=== PATIENT | female | born 1990 | race Two or more races ===

== ENCOUNTER → 2017-10-17 | Outpatient (CLI) | payer OTHER | LOC: M RAD 14:59 | DX: N63.10 Unspecified lump in the right breast, unspecified quadrant (principal) | CPT/HCPCS: 77066 ==

== ENCOUNTER 2018-06-05 12:32 | Emergency (ER) | payer OTHER ==
[~2018-06-05] VITALS: Ht 157.5 cm; Wt 84.5 kg
[2018-06-05] MEDS ORDERED: NS 1,000 ML IV ONE (14:30)
[2018-06-05] MEDS ORDERED: METOCLOPRAMIDE INJ 10MG/2ML VIAL (J2765) IV ONE (14:30)
[2018-06-05] MEDS ORDERED: KETOROLAC 30 MG/ML VIAL (J1885) IV ONE (14:30)
[2018-06-05 14:43] LABS: HEMATOCRIT 43.7 % (36.0-47.0); HEMOGLOBIN 14.4 g/dl (12.0-15.5); MEAN CORPUSCULAR HEMOGLOBIN 30.3 pg (27.0-33.0); PLATELET COUNT, AUTOMATED 219 10^3/uL (150-450); RED BLOOD COUNT 4.75 10^6/uL (4.00-5.40); WHITE BLOOD COUNT 6.8 10^3/uL (4.0-10.0)
[2018-06-05 15:02] LABS: INFLUENZA A AMPLIFICATION NEGATIVE (NEGATIVE); INFLUENZA B AMPLIFICATION NEGATIVE (NEGATIVE)
[2018-06-05 15:07] LABS: ATYPICAL LYMPH 5 % (0-5); LYMPHOCYTES 52 % (16-52); NEUTROPHILS 43 % (35-75); PLATELET ESTIMATE NORMAL (NORMAL)
[2018-06-05 15:13] LABS: ALBUMIN 4.1 GM/DL (3.2-5.2); ALT/SGPT 69 U/L (12-78); BILIRUBIN,TOTAL 0.5 MG/DL (0.2-1.0); BLOOD UREA NITROGEN 12 MG/DL (7-18); CALCIUM LEVEL 8.3 MG/DL (8.5-10.1); CARBON DIOXIDE LEVEL 28 MEQ/L (21-32); CHLORIDE LEVEL 106 MEQ/L (98-107); CREATININE FOR GFR 0.71 MG/DL (0.55-1.30); GLOMERULAR FILTRATION RATE > 60.0 (>60); GLUCOSE, FASTING 74 MG/DL (70-100); POTASSIUM SERUM 3.8 MEQ/L (3.5-5.1); SODIUM LEVEL 139 MEQ/L (136-145); TOTAL PROTEIN 7.5 GM/DL (6.4-8.2)
--- NOTE | 2018-06-05 15:26 | REP ---
Chest x-ray: Two views. History: Pain with inspiration. . Comparison study: No comparison study . Findings: The lungs are well inflated and free of infiltrate. The pleural angles are sharp. The heart size is normal. Pulmonary vasculature is not increased. No significant bony abnormality is seen. Impression: Negative chest x-ray. Electronically Signed by Feliberto Laughlin MD 06/05/2018 03:17 P
[2018-06-05] MEDS ORDERED: REGL10TA6 PO (15:31)
[2018-06-05] MEDS ORDERED: AUGM875T28 PO (15:31)
[2018-06-05] MEDS ORDERED: ZOFR4TAB16 PO (15:31)
[2018-06-05] MEDS ORDERED: NAPR-50 PO (15:31)
[2018-06-05] MEDS ORDERED: PRED20TA PO (15:33)
[2018-06-05] MEDS ORDERED: PROAAER10 INH (15:33)
[2018-06-05] MEDS ORDERED: AUGMENTIN 875 MG TAB PO ONE (15:45)
[2018-06-05 16:21] VITALS: BP 105/57
--- NOTE | 2018-06-06 06:57 | ECGEPIP ---
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
== END 2018-06-05 16:27 | disposition home or self-care (01) ==
LOC: M ED 12:32
DX: J01.90 Acute sinusitis, unspecified (principal); J20.9 Acute bronchitis, unspecified; G43.909 Migraine, unspecified, not intractable, without status migrainosus; R07.9 Chest pain, unspecified
CPT/HCPCS: 71046; 80053; 85025; 87502; 87880; 93005; 96374; 96375; 99284; J1885; J2765

== ENCOUNTER → 2019-04-13 | Outpatient (REF) | payer OTHER ==
[~2019-04-13] MED LIST: AUGM875T28 PO; NAPR-837 PO; PRED20TA PO; PROAAER10 INH; REGL10TA6 PO; ZOFR4TAB16 PO
== END ==
LOC: M SFHCLERA 17:11
PROVIDERS: ATTEND Physician Assistant
DX: N92.6 Irregular menstruation, unspecified (principal)
CPT/HCPCS: 81002; 81025; 84702; 87086; G0463

== ENCOUNTER → 2019-04-20 | Outpatient (REF) | payer OTHER | LOC: M SFHCLERA 11:57 | PROVIDERS: ATTEND Nurse Practitioner Family | DX: R50.9 Fever, unspecified (principal) ==

== ENCOUNTER → 2020-04-20 | Outpatient (REF) | payer OTHER ==
[2020-04-20 13:38] LABS: HEMATOCRIT 42.5 % (36.0-47.0); MEAN CORPUSCULAR HEMOGLOBIN 30.6 pg (27.0-33.0); MEAN CORPUSCULAR HGB CONC 32.9 g/dl (32.0-36.5); MEAN CORPUSCULAR VOLUME 92.8 fl (80.0-96.0); PLATELET COUNT, AUTOMATED 270 10^3/uL (150-450); RED BLOOD COUNT 4.58 10^6/uL (4.00-5.40); WHITE BLOOD COUNT 9.7 10^3/uL (4.0-10.0)
[2020-04-20 14:07] LABS: GLUCOSE CHALLENGE TEST 1 HOUR 83 MG/DL (LESS THAN 140)
[2020-04-20 15:00] LABS: HEPATITIS C VIRUS ABY INDEX < 0.0 INDEX (<0.8); HIV 1&2 SCREEN CENTAUR NEGATIVE (NEGATIVE)
[2020-04-20 15:39] LABS: CHLAMYDIA DNA AMPLIFICATION NEGATIVE (NEGATIVE); GC DNA AMPLIFICATION NEGATIVE (NEGATIVE)
== END ==
LOC: M PLALAB 09:17
PROVIDERS: ATTEND Obstetrics & Gynecology
DX: O99.211 Obesity complicating pregnancy, first trimester (principal)

== ENCOUNTER → 2020-06-16 | Outpatient (CLI) | payer OTHER ==
--- NOTE | 2020-06-16 20:14 | REP ---
INDICATION: ANATOMY. COMPARISON: None. TECHNIQUE: Transabdominal obstetric sonography. FINDINGS: Scanning through the gravid uterus demonstrates a viable single intrauterine gestation in breech lie. motion is observed and heart rate is recorded at 149 beats per minute. A anterior placenta is seen, grade 1, without evidence of placenta previa. Closed cervical length is measured at 4.2 cm transabdominally. No extrauterine abnormality is observed. Amniotic fluid is subjectively normal. head appears somewhat dull a Co cephalic, possibly is rib related to breech position. No other abnormality is observed. nose and lips and four-chamber heart and outflow tract views are less than optimally seen. Similarly, diaphragm and kidneys are less than optimally seen due to position. The following additional anatomic structures are identified felt to be unremarkable: Intracranial anatomy, facial profile, left-sided stomach, abdominal wall cord insertion, urinary bladder, spine, upper and lower extremities, three-vessel cord.. Biometry chart: BPD 4.0 cm, 18 weeks 2 days Head circumference 16.2 cm, 19 weeks 0 days Abdominal circumference 14.3 cm, 19 weeks 4 days Femur length 3.2 cm, 20 weeks 0 days Humeral length 3.0 cm, 20 weeks 0 days HC AC ratio normal 1.13 Cephalic index normal 0.67 Estimated weight 302 g, 0 lb 10 oz, 86 percentile for 18 weeks 6 days IMPRESSION: Viable single intrauterine gestation at 19 weeks 2 days by today's composite sonographic criteria. VITALIY by today's sonography November 08, 2020. No complication identified. Expected gestational age estimate based on known VITALIY November 11, 2020 is 18 weeks 6 days. anatomic survey less than complete. <Electronically signed by Candelario Laughlin > 06/16/202009
== END ==
LOC: M WHC 13:34
PROVIDERS: ATTEND Obstetrics & Gynecology
DX: O99.212 Obesity complicating pregnancy, second trimester (principal); Z3A.19 19 weeks gestation of pregnancy

== ENCOUNTER → 2020-07-22 | Outpatient (CLI) | payer OTHER ==
--- NOTE | 2020-07-22 15:30 | REP ---
INDICATION: F/U ANATOMY. Specifically head, upper lip, four-chamber heart, kidneys, and ventricular outflow tracts COMPARISON: 06/16/2020 TECHNIQUE: Transabdominal FINDINGS: Multiple ultrasonographic images of the gravid uterus shows a single living intrauterine gestation in the cephalic presentation. Doppler interrogation of the the heart shows a heart rate of 140 beats per minute. The placenta is anterior and not low-lying. The subjective amniotic fluid volume is within normal limits. The cervix measures 6.7 cm in length and is closed. The head was seen to be within normal limits. Anatomical structures seen to be unremarkable are as follows: upper lip, kidneys, four-chamber heart, and ventricular outflow tracts BPD: 6.0 cm 24 weeks 3 days HC: 22.5 cm 24 weeks 4 days AC: 20.6 cm 25 weeks 1 day FL: 4.5 cm 24 weeks 5 days The estimated weight is 744 g which is at the 80th percentile for a 24 week 0 day gestational age. IMPRESSION: Single living intrauterine gestation as described above with an estimated gestational age of 24 weeks 6 days via composite criteria and an estimated date of delivery of 11/05/2020 by today's exam. No anomalies were detected. <Electronically signed by Antonino Marie > 07/22/20 [id number]
== END ==
LOC: M WHC 13:06
PROVIDERS: ATTEND Obstetrics & Gynecology
DX: Z34.92 Encounter for supervision of normal pregnancy, unspecified, second trimester (principal)

== ENCOUNTER → 2020-08-08 | Outpatient (REF) | payer OTHER ==
[2020-08-08 12:45] LABS: HEMOGLOBIN 12.3 g/dl (12.0-15.5); MEAN CORPUSCULAR HEMOGLOBIN 30.3 pg (27.0-33.0); MEAN CORPUSCULAR HGB CONC 32.4 g/dl (32.0-36.5); MEAN CORPUSCULAR VOLUME 93.6 fl (80.0-96.0); PLATELET COUNT, AUTOMATED 276 10^3/uL (150-450); RED BLOOD COUNT 4.06 10^6/uL (4.00-5.40); WHITE BLOOD COUNT 12.3 10^3/uL (4.0-10.0)
== END ==
LOC: M PLALAB 09:04
PROVIDERS: ATTEND Obstetrics & Gynecology
DX: Z34.92 Encounter for supervision of normal pregnancy, unspecified, second trimester (principal)

== ENCOUNTER → 2020-10-24 | Outpatient (REF) | payer OTHER | LOC: M SFHCWAGY 16:43 | PROVIDERS: ATTEND Obstetrics & Gynecology | DX: Z34.93 Encounter for supervision of normal pregnancy, unspecified, third trimester (principal) ==

== ENCOUNTER 2020-11-01 08:42 | Inpatient (IN) | payer OTHER ==
[2020-11-01] VITALS (60 sets, daily range): BP systolic 77–128; BP diastolic 43–72
[~2020-11-01] VITALS: Ht 157.5 cm; Wt 99.6 kg
[2020-11-01] MEDS ORDERED: MULTTAB20 PO (09:07)
[2020-11-01] MEDS ORDERED: HOME MED LIST COMPLETE! XX SCH (09:20)
[2020-11-01] MEDS ORDERED: LACTATED RINGER'S 1000 ML IV STA (09:28)
[2020-11-01] MEDS ORDERED: LIDOCAINE 1% MDV 20ML VIAL INFIL PRN (09:30)
[2020-11-01] MEDS ORDERED: CARBOPROST TROMETHAMINE 250 MCG/ML AMP IM PRN (09:30)
[2020-11-01] MEDS ORDERED: TRANEXAMIC ACID INJection 1,000 MG in NS 100 ML IV PRN (09:30)
[2020-11-01] MEDS ORDERED: OXYTOCIN DRIP 30 UNITS in IV 1 EA IV PRN ×4 (09:30)
[2020-11-01] MEDS ORDERED: METHYLERGONOVINE MALEATE 0.2 MG/ML VIAL (J2210) IM PRN (09:30)
[2020-11-01] MEDS ORDERED: OXYTOCIN DRIP 30 UNITS in IV 1 EA IV SCH (09:40)
[2020-11-01 10:15] LABS: HEMATOCRIT 35.5 % (36.0-47.0); HEMOGLOBIN 11.6 g/dl (12.0-15.5); MEAN CORPUSCULAR HEMOGLOBIN 28.1 pg (27.0-33.0); MEAN CORPUSCULAR HGB CONC 32.7 g/dl (32.0-36.5); PLATELET COUNT, AUTOMATED 263 10^3/uL (150-450); RED BLOOD COUNT 4.13 10^6/uL (4.00-5.40); WHITE BLOOD COUNT 12.3 10^3/uL (4.0-10.0)
[2020-11-01] MEDS: LR 1,000 ML IV SCH ×2 (10:17→13:51)
--- NOTE | 2020-11-01 10:43 | HPEPDOC ---
Obstetrical History & Physical General Date of Admission Nov 01, 2020 at 08:42 History of Present Illness 30-year-old at 38+4 weeks gestation. Presents for an induction of labor. Indication for induction: Oligohydramnios. Patient was seen in the office earlier today and found to have oligohydramnios She denies vaginal bleeding, loss of fluid or painful, frequent uterine contractions. She reports regular movement. She denies headache, visual changes, right upper quadrant pain, shortness of breath or chest pain. course: Oligohydramnios PMH: PCOS, psoriasis, depression SH: Left knee/Ortho Meds: vitamin All: NKDA DIRECT MAIL CLERK: No STI or dysplasia OB: G1, 2017: , 9 pounds 3 ounces. G2, 2020: First trimester SAB Sochx: No tobacco, alcohol or drug use FamHx: Hypertension, diabetes, heart disease, skin and breast cancer labs: Blood type O+, antibody screen negative, HepBsAg neg, HIV neg, rubella immune, Hep C antibody negative, RPR nonreactive, CT/GC neg, urine c ulture negative, 1 hour glucose challenge test 96, GBS negative Imaging: Second trimester ultrasounds revealed no anomalies or placental abnormalities. Past Medical History Allergies Coded Allergies: No Known Allergies (Unverified , 06/05/18) Medications Scheduled Amoxicillin/Potassium Clav (Augmentin 875-125 Tablet) 1 Tab Tab, 1 TAB PO BID Naproxen (Naprosyn) 500 Mg Tab, 500 MG PO BID take with food Ondansetron HCl (Zofran) 4 Mg Tab, 1 TAB PO Q6H Prednisone (Prednisone) 20 Mg Tab, 60 MG PO DAILY No122/Iron/Folic Acid ( Multi Tablet) 1 Each Tablet, 1 TAB PO DAILY Scheduled PRN Albuterol Sulfate (Proair Hfa) 108 Mcg/Act Aer, 2 PUFF INH Q4-6HP PRN for CONGESTION Metoclopramide HCl (Reglan) 10 Mg Tab, 10 MG PO Q6H PRN for NAUSEA Physical Examination Physical Examination GENERAL: Alert and oriented times three. ABDOMEN: Gravid and non-tender to touch. FETUS: Is vertex (VTX) by sterile vaginal examination (SVE), fetus is vertex (VTX) by Baltazar. HEART RATE: Regular rate and rhythm. LUNGS: Clear to auscultation (CTA). EXTREMITIES: No edema. No clonus SVE: 3cm, 50%, -3, cephalic, intact, no bloody show. EFM: Cat I [place]: irregular contraction pattern. Vital Signs/I&O Vital Signs Date Time Temp Pulse Resp B/P (MAP) Pulse Ox O2 Delivery O2 Flow Rate FiO2 11/01/20 10:16 105 108/69 (82) 11/01/20 09:06 97.3 17 Laboratory Data 24H LABS Laboratory Tests 2 11/01/20 09:02: Serology Scanned Report Hepatitis B Testing 11/01/20 10:03: Nucleated Red Blood Cells % (auto) 0.0 CBC/BMP Laboratory Tests 11/01/20 10:03 Assessment/Plan Assessment 30-year-old -0-1-1 at 38+4 weeks gestation. Oligohydramnios. Reassuring maternal and status. Plan Admit and orient. Technologist Development and consent. Labs and intravenous (IV) per unit protocol. Counseled on rationale for induction of labor in the setting of oligohydramnios diagnosis. Risks of Pitocin and induction of labor (IOL) reviewed. Anticipate normal spontaneous delivery (). C-S as appropriate. RJ PALACIOS DO Nov 01, 2020 10:42
[2020-11-01] MEDS ORDERED: FENTANYL 2MCG/ML ROPIVACAINE 0.2% IN 0.9% NACL 100ML IVBAG As Ordered ONE (11:58)
[2020-11-01] MEDS ORDERED: REFRIGERATOR IV KEYS XX PRN (13:15)
[2020-11-01] MEDS ORDERED: EPIDURAL/PCA KEYS XX PRN (13:15)
[2020-11-01] MEDS ORDERED: FENTANYL/ROPIVACAINE/NACL BAG 100 ML EPIDURAL SCH (13:15)
[2020-11-01] MEDS ORDERED: LACTATED RINGER'S 1000 ML IV PRN (13:15)
[2020-11-01] MEDS ORDERED: NALOXONE INJ 0.4MG/1ML VIAL (J2310 PER 1MG) IV PRN (13:15)
[2020-11-01] MEDS ORDERED: EPIDURAL COMMENT XX SCH (13:15)
[2020-11-01] MEDS ORDERED: diphenhydrAMINE 50MG/ML VIAL (J1200) IV PRN (13:15)
[2020-11-01] MEDS ORDERED: ONDANSETRON 4MG/2ML VIAL IV PRN (13:15)
[2020-11-01] MEDS: ePHEDrine SULFATE 25 MG/5 ML(5MG/ML) SYRINGE IV PRN ×4 (13:30→21:39)
--- NOTE | 2020-11-01 18:21 | IPNPDOC ---
Obstetrical Progress Note Date of Service Nov 01, 2020 Subjective Patient elected to have epidural. Very comfortable. Objective Vital Signs Date Time Temp Pulse Resp B/P (MAP) Pulse Ox O2 Delivery O2 Flow Rate FiO2 11/01/20 17:40 75 87/48 (61) 11/01/20 13:50 96.8 15 Assessment Heart Rate Tracing: Category I Tocometer Frequency: every 2-5 min. Sterile Vaginal Examination Dilation: 5 cm Effacement (%): 50% Station: -2 Cervical Consistency: Soft Cervical Position: Anterior Postion/Presentation: Cephalic presentation Assessment and Plan Status: Reassuring Anticipate: Vaginal Delivery Additional Comments AROM,clear Reassuring maternal and status Continue RJ Lundberg DO Nov 01, 2020 18:21
[2020-11-01] MEDS ORDERED: MEASLES,MUMPS,RUBELLA VACCINE INJ (MMR-II) (90707) SC SCH (23:15)
[2020-11-01] MEDS ORDERED: ACETAMINOPHEN 500 MG TAB PO PRN (23:15)
[2020-11-01] MEDS ORDERED: ACETAMINOPHEN TAB 650MG DOSE (2X325MG) PO PRN (23:15)
[2020-11-01] MEDS ORDERED: METHYLERGONOVINE MALEATE 0.2 MG TAB PO PRN (23:15)
[2020-11-01] MEDS ORDERED: RHOGAM 300 MCG (1500 IU) INJ (J2790) IM SCH (23:15)
[2020-11-01] MEDS ORDERED: IBUPROFEN 600MG TAB PO PRN (23:15)
[2020-11-01] MEDS ORDERED: DOCUSATE SODIUM 100MG CAPSULE PO PRN (23:15)
[2020-11-01] MEDS ORDERED: DIBUCAINE 1% OINTMENT 30GM TOP PRN (23:15)
--- NOTE | 2020-11-01 23:17 | DNPDOC ---
[facility] Delivery Note Delivery Note DATE OF DELIVERY: 11/01/2020 TIME OF DELIVERY: 230 Spontaneous vaginal delivery. CLIENT CARE REPRESENTATIVE: Dr. Tyrese Castillo DO FACOG ANESTHESIA: Epidural LACERATION: None ESTIMATED BLOOD LOSS: 200 mL. FINDINGS: 9 pound 7 ounce (4130 g) female , Score 8 and 9. DELIVERY SUMMARY: The active phase and second stage of labor progressed in normal fashion. She received Pitocin augmentation throughout her labor course. The head delivered in the PAT position, and restituted LOT. No nuchal cord was noted. The anterior shoulder delivered with gentle downward guidance and the remainder of the body delivered with ease. The baby was placed on the patient's chest. Delayed cord clamping occurred for approximately 1 minute. The cord was then doubly clamped and cut. IV Pitocin was bolused to actively manage the third stage of labor. The placenta delivered intact without any difficulty within 10 minutes of delivery. The uterine fundus was noted to be firm and 2 cm below the umbilicus. The cervix, vagina, vulva and perineum were inspected. No laceration. Excellent hemostasis was noted. Sponge, needle and instrument counts were correct per protocol. DO GORAN Jimenez JONATHAN R. DO Nov 01, 2020 23:17
[2020-11-02 00:07] VITALS: BP 110/56
[2020-11-02 06:00] VITALS: BP 100/54
--- NOTE | 2020-11-02 08:28 | IPNPDOC ---
Progress Note Date of Service: Nov 02, 2020 Day#: 1 Progress Note SUBJECT: Status post . She has been ambulating, voiding spontaneously without issue and tolerating regular diet. Lochia decreasing/minimal. Pain is well-controlled. Denies headache, visual changes, right upper quadrant pain, shortness breath or chest pain. OBJECTIVE: VITAL SIGNS: Within normal limits, afebrile. Alert and oriented times three. Abdomen: Fundus firm at U-2. Soft, NTTP. ASSESSMENT: Status post uncomplicated spontaneous vaginal delivery. Vitals within normal limits, afebrile, hemodynamically stable with no evidence of infection. PLAN: Discharge to home tomorrow Tylenol and Motrin for pain. Routine instructions/precautions reviewed. Routine PP visit in 6 weeks in clinic. VS, I&O, 24H, [place] Vital Signs/I&O Vital Signs Date Time Temp Pulse Resp B/P (MAP) Pulse Ox O2 Delivery O2 Flow Rate FiO2 11/02/20 06:00 97.5 83 16 100/54 (69) 98 Room Air I&O- Last 24 Hours up to 6 AM 11/02/20 06:00 Intake Total 4299 ml Output Total 2200 ml Balance 2099 ml Laboratory Data 24H LABS Laboratory Tests 2 11/01/20 09:02: Serology Scanned Report Hepatitis B Testing 11/01/20 10:03: Nucleated Red Blood Cells % (auto) 0.0, Syphilis Serology NONREACTIVE CBC/BMP Laboratory Tests 11/01/20 10:03 RJ PALACIOS DO Nov 02, 2020 08:27
[2020-11-02] MEDS: PRENATAL VITAMINS CHEWABLE TABLET PO SCH (09:08)
[2020-11-02] MEDS: IBUPROFEN 800 MG TAB PO PRN ×2 (10:03→18:19)
[2020-11-02 18:00] VITALS: BP 113/56
[2020-11-03 06:00] VITALS: BP 133/87
[2020-11-03] MEDS: PRENATAL VITAMINS CHEWABLE TABLET PO SCH (07:27)
[2020-11-03] MEDS: IBUPROFEN 800 MG TAB PO PRN (10:18)
== END 2020-11-03 11:48 | disposition home or self-care (01) | DRG 807 ==
LOC: M LDI 08:42 → M OBS 11-02 01:25
PROVIDERS: ADMIT Obstetrics & Gynecology; ATTEND Obstetrics & Gynecology
PROC: 10E0XZZ Delivery of Products of Conception, External Approach (ICD-10-PCS; principal; 2020-11-01)
PROC: 3E033VJ Introduction of Other Hormone into Peripheral Vein, Percutaneous Approach (ICD-10-PCS; 2020-11-01)
DX: O41.03X0 Oligohydramnios, third trimester, not applicable or unspecified (principal); Z37.0 Single live birth; Z3A.38 38 weeks gestation of pregnancy; E28.2 Polycystic ovarian syndrome; L40.9 Psoriasis, unspecified; O99.284 Endocrine, nutritional and metabolic diseases complicating childbirth; O99.72 Diseases of the skin and subcutaneous tissue complicating childbirth

== ENCOUNTER 2024-12-12 20:39 | Emergency (ER) | payer OTHER ==
[~2024-12-12] VITALS: Ht 157.5 cm; Wt 103.2 kg
[~2024-12-12 20:39] MED LIST changes: +MULTTAB20 PO
[2024-12-12 21:27] LABS: KETONE, URINE AUTO RFX NEGATIVE (NEGATIVE); LEUKOCYTE ESTERASE UR AUTO RFX 3+ (NEGATIVE); MUCUS, URINE RFX SMALL (NEGATIVE); NITRITE, URINE AUTO RFX NEGATIVE (NEGATIVE); RBC, URINE AUTO RFX 4 /HPF (0-3); SQUAM EPITHELIAL CELL UR AURFX 5 /HPF (0-6); WBC, URINE AUTO RFX 7 /HPF (0-3)
[2024-12-12 22:41] LABS: BASO # 0.0 10^3/uL (0.0-0.2); BASO % 0.4 % (0.0-1.0); EOS # 0.2 10^3/uL (0.0-0.5); EOS % 1.8 % (0.0-3.0); LYMPH # 3.0 10^3/uL (1.5-5.0); LYMPH % 26.7 % (24.0-44.0); MONO # 0.9 10^3/uL (0.0-0.8); MONO % 7.8 % (2.0-8.0); NEUTROPHILS # 7.1 10^3/uL (1.5-8.5); NEUTROPHILS % 62.5 % (36.0-66.0); PLATELET COUNT, AUTOMATED 280 10^3/uL (150-450)
[2024-12-12 23:06] LABS: CALCIUM LEVEL 9.0 MG/DL (8.5-10.1); CARBON DIOXIDE LEVEL 23 MMOL/L (20-31); CHLORIDE LEVEL 107 MMOL/L (98-107); CREATININE FOR GFR 0.54 MG/DL (0.55-1.30); GLOMERULAR FILTRATION RATE > 90.0 (>60); POTASSIUM SERUM 3.8 MMOL/L (3.5-5.1); SODIUM LEVEL 140 MMOL/L (136-145)
[2024-12-13] VITALS: TEMP 97.6
[2024-12-13] MEDS ORDERED: CEFD1CAP9 PO (00:17)
[2024-12-13 00:30] VITALS: BP 113/72; O2SAT 96
[2024-12-13] MEDS: CEFDINIR 300 MG CAP PO ONE (00:53)
== END 2024-12-13 01:04 | disposition home or self-care (01) ==
LOC: M ED 20:39
DX: O23.42 Unspecified infection of urinary tract in pregnancy, second trimester (principal); Z3A.18 18 weeks gestation of pregnancy; Z79.51 Long term (current) use of inhaled steroids; Z79.2 Long term (current) use of antibiotics; Z79.52 Long term (current) use of systemic steroids; Z79.810 Long term (current) use of selective estrogen receptor modulators (SERMs)

== ENCOUNTER → 2024-12-25 | Outpatient (CLI) | payer OTHER ==
[~2024-12-25] MED LIST changes: +CEFD1CAP9 PO
== END ==
LOC: M RAD 13:21
PROVIDERS: ATTEND Specialist
DX: Z36.89 Encounter for other specified antenatal screening (principal); Z3A.22 22 weeks gestation of pregnancy

== ENCOUNTER → 2025-01-06 | Outpatient (CLI) | payer OTHER ==
[2025-01-06 11:03] LABS: PLATELET COUNT, AUTOMATED 284 10^3/uL (150-450)
[2025-01-06 12:01] LABS: HIV 1&2 SCREEN NEGATIVE (NEGATIVE)
[2025-01-06 12:10] LABS: HEPATITIS C VIRUS ABY INDEX < 0.02 INDEX (<0.8)
[2025-01-06 12:11] LABS: Trichomonas vaginalis (AMP) NOT DETECTED (NEGATIVE)
[2025-01-06 14:17] LABS: GC DNA AMPLIFICATION NEGATIVE (NEGATIVE)
== END ==
LOC: M PLALAB 09:14
PROVIDERS: ATTEND Specialist
DX: Z34.80 Encounter for supervision of other normal pregnancy, unspecified trimester (principal)

== ENCOUNTER → 2025-01-19 | Outpatient (CLI) | payer OTHER | LOC: M WHC 08:26 | PROVIDERS: ATTEND Advanced Practice Midwife | DX: Z34.80 Encounter for supervision of other normal pregnancy, unspecified trimester (principal) ==

== ENCOUNTER → 2025-01-22 | Outpatient (REF) | payer OTHER ==
[2025-01-22 11:38] LABS: APPEARANCE, URINE HAZY (CLEAR); BACTERIA, URINE AUTO 2+ (NEGATIVE); BILIRUBIN, URINE AUTO NEGATIVE (NEGATIVE); BLOOD, URINE BLOOD 1+ (NEGATIVE); GLUCOSE, URINE (UA) AUTO NEGATIVE (NEGATIVE); KETONE, URINE AUTO NEGATIVE (NEGATIVE); LEUKOCYTE ESTERASE, URINE AUTO 3+ (NEGATIVE); NITRITE, URINE AUTO NEGATIVE (NEGATIVE); PROTEIN, URINE AUTO NEGATIVE (NEGATIVE); RBC, URINE AUTO 14 /HPF (0-3); SPECIFIC GRAVITY URINE AUTO 1.005 (1.002-1.035); SQUAMOUS EPITHELIAL CELL UR AU 4 /HPF (0-6); UROBILINOGEN, URINE AUTO 0.2 mg/dL (0.0-2.0); WBC, URINE AUTO 8 /HPF (0-3)
== END ==
LOC: M SFHCWAGY 10:18
PROVIDERS: ATTEND Advanced Practice Midwife
DX: R30.0 Dysuria (principal)

== ENCOUNTER → 2025-02-08 | Outpatient (REF) | payer OTHER | LOC: M SMT 13:02 | PROVIDERS: ATTEND Urology | DX: R39.15 Urgency of urination (principal) ==

== ENCOUNTER → 2025-03-08 | Outpatient (CLI) | payer OTHER ==
[2025-03-08 13:30] LABS: PLATELET COUNT, AUTOMATED 309 10^3/uL (150-450)
[2025-03-08 14:37] LABS: Trichomonas vaginalis (AMP) NOT DETECTED (NEGATIVE)
[2025-03-08 14:59] LABS: GLUCOSE CHALLENGE TEST 1 HOUR 122 MG/DL (LESS THAN 140); HEPATITIS C VIRUS ABY INDEX < 0.02 INDEX (<0.8); HIV 1&2 SCREEN NEGATIVE (NEGATIVE)
[2025-03-08 15:00] LABS: GC DNA AMPLIFICATION NEGATIVE (NEGATIVE)
== END ==
LOC: M LAB 08:21 → M PLALAB 08:21
PROVIDERS: ATTEND Obstetrics & Gynecology
DX: Z34.92 Encounter for supervision of normal pregnancy, unspecified, second trimester (principal)